=== PATIENT | female | born 2000 | race African-American/Black ===

== ENCOUNTER 2024-08-23 21:19 | Emergency (ER) | payer SELFPAY ==
--- NOTE | ~2024-08-23 | XR_ITS ---
EXAMINATION: XR chest 2V Exam Date/Time: 08/23/2024 21:50 CDT HISTORY: syncopal episode Comparison: None. RESULT: Lines, tubes, and devices: Thoracolumbar fusion hardware. Lungs and pleura: Right basilar scar/atelectasis, otherwise clear. Cardiomediastinal silhouette: Stable. Other: No acute osseous or upper abdominal finding. IMPRESSION: No acute cardiopulmonary process. Reviewed, dictated and finalized at location [facility].
--- NOTE | 2024-08-23 21:28 | ECG_ITS ---
Test Date: 2024-08-23 21:36:04 Measurements Intervals [place] Rate: 89 P: 13 VA: 135 QRS: 53 QRSD: 93 T: 44 QT: 375 QTc: 456 Interpretive Statements SINUS RHYTHM NORMAL ELECTROCARDIOGRAM No previous ECG available for comparison Electronically Signed On 08-24-2024 10:09:38 CDT by Nick Romero M.D.
[2024-08-23 21:29] VITALS: BP 107/69; PULSE 89; RESP 20; TEMP 36.8; O2SAT 100
[2024-08-23 21:49] LABS: Hematocrit 35.6 % (37.0-47.0); Hemoglobin 10.7 g/dL (12.0-15.0); Immature Granulocyte Percent A 0.4 % (0-0.5); Lymphocytes Absolute Auto 2.55 K/mm3 (0.9-3.2); Mean Corpuscular HGB Conc 30.1 g/dl (32-36); Mean Corpuscular Hemoglobin 25.5 pg (26-34); Mean Corpuscular Volume 84.8 fl (80-100); Nucleated Red Blood Cells Absolute Auto 0.000 K/mm3 (0.0-0.012); Nucleated Red Blood Cells Perc 0.0 % (0.0-0.2); Platelet Count Result 201 k/mm3 (150-375); Red Blood Count 4.20 M/mm3 (4.2-5.4); White Blood Count 10.1 K/mm3 (4.5-10.0)
[2024-08-23 22:06] LABS: Alanine Aminotransferase 18 U/L (6-35); Albumin Level 3.7 g/dL (3.5-5.1); Alkaline Phosphatase 27 U/L (38-126); Anion Gap 6 mmol/L (4-12); Aspartate Amino Transferase 30 U/L (14-36); Bilirubin,Total 0.4 mg/dL (0.2-1.3); Blood Urea Nitrogen 16 mg/dL (7-17); Calcium 8.2 mg/dL (8.4-10.2); Carbon Dioxide 28 mmol/L (22-30); Chloride 103 mmol/L (98-107); Estimated CRCL calculation 84 ml/min; Estimated Glomerular Filt Rate > 60; Glucose 106 mg/dL (65-110); Potassium 3.5 mmol/L (3.4-5.0); Sodium 137 mmol/L (137-145); Total Protein 6.4 g/dL (6.3-8.2)
[2024-08-23 23:59] VITALS: PULSE 93; RESP 25; O2SAT 100
[2024-08-24] VITALS (15 sets, daily range): BP systolic 112–123; BP diastolic 71–81; PULSE 82–94; RESP 14–20; O2SAT 98–100
--- NOTE | 2024-08-24 00:43 | ED_ITS ---
HPI - Dizziness General Chief Complaint: Syncope Stated Complaint: Syncopal episode after taking medication Time Seen by Provider: 08/24/24 00:02 History of Present Illness HPI Narrative: 23-year-old female presents emergency department for a syncopal episode. Patient states she took her risperidone and trazodone and 45 minutes later she stood up, became lightheaded and felt like she was going to pass out. She believe she may have passed out but lowered herself to the ground. She did not hit her head. Denies nausea vomiting, diaphoresis, urinary incontinence. Patient's father is at bedside who was with the patient at the time of this event. He states that the patient woke up very quickly and after 30 seconds she was back to her baseline. The patient states she is currently asymptomatic. Patient does note that she did not have much to eat today and did not drink a lot of water. She denies any chest pain or shortness of breath. Related Data Allergies Allergy/AdvReac Type Severity Reaction Status Date / Time amoxicillin Allergy Intermediate Hives Verified 08/23/24 21:21 Review of Systems 2 Review of Systems: All systems reviewed & are unremarkable except as noted in HPI and below Exam 2 Narrative: GENERAL: Well-appearing, well-nourished, and in no acute distress. HEAD: Normocephalic, atraumatic. EYES: PERRLA and EOMI. ENT: Nares clear, no rhinorrhea or epistaxis. Mucous membranes moist. NECK: Supple. CHEST: Clear to auscultation. No respiratory distress. HEART: Regular rate and rhythm. No murmur heard. Normal peripheral pulses. ABDOMEN: Soft, nontender, nondistended, normal active bowel sounds. EXTREMITIES: Normal range of motion. No edema. SKIN: Warm, dry, no rash. NEURO: No focal deficits. Alert and oriented x3 Course Vital Signs Vital signs: Vital Signs Temperature 98.2 F 08/23/24 21:29 Pulse Rate 89 08/23/24 21:29 Respiratory Rate 20 08/23/24 21:29 Blood Pressure 107/69 08/23/24 21:29 Pulse Oximetry 100 08/23/24 21:29 Oxygen Delivery Room Air 08/23/24 21:29 Temperature 98.2 F 08/23/24 21:29 Pulse Rate 86 08/24/24 01:25 Respiratory Rate 20 08/23/24 21:29 Blood Pressure 115/71 08/24/24 01:25 Pulse Oximetry 99 08/24/24 00:21 Oxygen Delivery Room Air 08/24/24 00:21 MDM - Dizziness MDM Narrative Medical decision making narrative: 23-year-old female presents emergency department for syncopal episode that occurred this evening. See HPI for further history. Triage vitals are stable. Patient is afebrile and nontoxic appearing resting comfortably in exam bed. States she is asymptomatic. CBC with mild leukocytosis of 10.1. Hemoglobin is 10.7 with no prior for comparison. Chemistries are largely unremarkable. No electrolyte derangements. Magnesium within normal limits. Chest x-ray shows no acute cardiopulmonary findings. EKG shows normal sinus rhythm with a rate of 89 ppm, normal NH interval, normal QRS duration, normal QTC, no ischemic changes. Troponin is undetectable. Orthostatic vital signs are normal. Patient updated on results. She received IV fluids and remains asymptomatic. Suspect orthostatic syncope. Encouraged increased fluid intake advised follow- up with PCP. Strict ED return precautions discussed. She is agreeable with the plan verbalized understanding. Discharged in stable condition. Lab Data 08/23/24 21:44 08/23/24 21:44 Labs: Lab Results 08/23/24 08/24/24 Range/Units 21:44 00:54 WBC 10.1 H (4.5-10.0) K/mm3 RBC 4.20 (4.2-5.4) M/mm3 Hgb 10.7 L (12.0-15.0) g/dL Hct 35.6 L (37.0-47.0) % MCV 84.8 (80-100) fl MCH 25.5 L (26-34) pg MCHC 30.1 L (32-36) g/dl RDW 14.6 H (11.5-14.5) % Plt Count 201 (150-375) k/mm3 MPV 12.1 H (7.4-10.4) fl Immature Gran % (Auto) 0.4 (0-0.5) % Neut % (Auto) 61.5 (45.5-73.1) % Lymph % (Auto) 25.1 (18.3-44.2) % [place] % (Auto) 7.9 (2.6-8.5) % Eos % (Auto) 4.1 (0-4.4) % Baso % (Auto) 1.0 (0.2-1.2) % Lymph # (Auto) 2.55 (0.9-3.2) K/mm3 [place] # (Auto) 0.8 H (0.1-0.6) K/mm3 Eos # (Auto) 0.4 H (0-0.3) K/mm3 Baso # (Auto) 0.1 (0.0-0.1) K/mm3 Abs Immat Gran (auto) 0.04 H (0.00-0.031) K/mm3 Absolute Neuts (auto) 6.2 (1.3-6.7) K/mm3 Absolute Nucleated RBC 0.000 (0.0-0.012) K/mm3 Nucleated RBC % 0.0 (0.0-0.2) % PT 13.8 (11.1-14.7) Seconds INR 1.0 APTT 26.1 (22.3-36.8) Seconds Sodium 137 (137-145) mmol/L Potassium 3.5 (3.4-5.0) mmol/L Chloride 103 (98-107) mmol/L Carbon Dioxide 28 (22-30) mmol/L Anion Gap 6 (4-12) mmol/L BUN 16 (7-17) mg/dL Creatinine 0.79 (0.7-1.0) mg/dL Estim Creat Clear Calc 84 ml/min Estimated GFR > 60 (59 - ) Glucose 106 (65-110) mg/dL Calcium 8.2 L (8.4-10.2) mg/dL Magnesium 2.0 (1.6-2.3) mg/dL Total Bilirubin 0.4 (0.2-1.3) mg/dL AST 30 (14-36) U/L ALT 18 (6-35) U/L Alkaline Phosphatase 27 L (38-126) U/L Troponin I < 0.012 (0.000-0.034) ng/mL Total Protein 6.4 (6.3-8.2) g/dL Albumin 3.7 (3.5-5.1) g/dL Discharge Plan Discharge Clinical Impression: Syncope and collapse Patient Disposition: Home Condition: Stable Instructions: Antibiotic Form, Syncope (ED) Additional Instructions: Please make sure to drink plenty of fluids. Follow-up closely with her primary care provider. Return to the emergency department if you develop chest pain, shortness of breath, lose consciousness or other concerning symptoms. Patient Language: Kinyarwanda Follow-up/Referrals: PHYSICIAN NOT ON STAFF,NONSTAFF [Primary Care Provider] -
[2024-08-24] MEDS: SODIUM CHLORIDE 0.9% IV 1,000 ML 999 ML IV CONT (00:57)
[2024-08-24 01:19] LABS: INR 1.0; Prothrombin Time 13.8 Seconds (11.1-14.7)
[2024-08-24 01:20] LABS: Partial Thromboplastin Time 26.1 Seconds (22.3-36.8)
[2024-08-24 01:21] LABS: Magnesium 2.0 mg/dL (1.6-2.3)
[2024-08-24 01:24] LABS: Troponin I < 0.012 ng/mL (0.000-0.034)
== END 2024-08-24 01:52 | disposition home or self-care (01) ==
PROVIDERS: Emergency Medicine; Emergency Provider Physician Assistant
DX: R55 Syncope and collapse (principal)
CPT/HCPCS: 36415; 71046; 80053; 83735; 84484; 85025; 85610; 85730; 93005; 99284; J7030